=== PATIENT | male | born 1995 | race Caucasian/White ===

== ENCOUNTER 2019-02-23 18:18 | Emergency (ER) | payer MEDICAID ==
[~2019-02-23] VITALS: Ht 175.3 cm; Wt 111.1 kg
[~2019-02-23 18:18] MED LIST: ATIVAN0.5 MG; CYMBALTA60 MG; DOXYCYCLINE; NAPROSYN500 MG PO; RISPERDAL4 M1
[2019-02-23] MEDS ORDERED: SEROQUEL 50 MG50 MG PO (18:21)
[2019-02-23] MEDS ORDERED: ATIVAN1 MG PO (18:21)
[2019-02-23] MEDS ORDERED: BUSPIRONE HCL10 MG PO (18:21)
[2019-02-23] MEDS ORDERED: EFFEXOR 5050 MG/1 T1 PO (18:22)
[2019-02-23] MEDS ORDERED: SEROQUEL XR 30300 M1 PO (18:22)
[2019-02-23] MEDS ORDERED: VISTARIL 25 MG25 M1 PO (18:23)
[2019-02-23 18:54] LABS: ABSOLUTE LYMPHOCYTES 1.3 thou/uL (0.8-5.3); ABSOLUTE MONOCYTES 0.4 thou/uL (0.0-1.2); ABSOLUTE NEUTROPHILS 2.6 thou/uL (1.6-8.1); BASOPHILS 0.8 %; EOSINOPHILS 0.2 %; HEMATOCRIT 44.1 % (42.0-52.0); HEMOGLOBIN 15.4 gm/dL (14.0-18.0); LYMPHOCYTES 30.3 %; MCHC 34.8 g/dL (28.0-37.0); MCV 86.2 fL (80.0-100.0); MONOCYTES 9.1 %; MPV 8.8 fl. (7.2-11.1); NUCLEATED RBCS 0 /100WBC; PLATELET COUNT* 188 thou/uL (150-400); POLYS 59.6 %; RBC 5.11 mil/uL (4.50-6.00); RDW-CV 13.2 % (10.5-14.5); WBC 4.3 thou/uL (4.0-11.0)
[2019-02-23 19:07] LABS: ALBUMIN 4.3 g/dL (3.4-5.0); CALCIUM 8.6 mg/dL (8.5-10.1); CREATININE 1.4 mg/dL (0.6-1.3); MAGNESIUM 1.9 mg/dL (1.8-2.4); POTASSIUM 3.4 mmol/L (3.5-5.1); TOTAL BILIRUBIN 0.4 mg/dL (<0.1-1.0); TOTAL PROTEIN 8.1 g/dL (6.4-8.2)
[2019-02-23 19:10] LABS: APTT 24.5 Seconds (25.0-31.3); PROTIME 10.1 Seconds (9.20-11.50)
[2019-02-23 19:18] LABS: SALICYLATE < 2.8 mg/dL (2.8-20.0)
[2019-02-23 19:19] LABS: ACETAMINOPHEN < 2 ug/mL (10-30); ALCOHOL < 10 mg/dL (<10)
[2019-02-23 21:03] LABS: URINE BILIRUBIN NEGATIVE (Negative); URINE BLOOD NEGATIVE (Negative); URINE CLARITY CLEAR; URINE COLOR YELLOW; URINE GLUCOSE-RANDOM NEGATIVE (Negative); URINE KETONES TRACE (Negative); URINE LEUKOCYTES-REFLEX NEGATIVE (Negative); URINE NITRITE-REFLEX NEGATIVE (Negative); URINE PROTEIN TRACE (Negative); URINE SPECIFIC GRAVITY >= 1.030 (1.005-1.030); URINE UROBILINOGEN 0.2 E.U./dl (0.2-1.0)
[2019-02-23 21:12] LABS: AMP/METHAMP Negative (Negative); BARBITURATES Negative (Negative); BENZODIAZEPINES Negative (Negative); COCAINE Negative (Negative); METHADONE Negative (Negative); OPIATES Negative (Negative); PCP Negative (Negative); THC Negative (Negative)
[2019-02-23 22:00] VITALS: BP 129/79
--- NOTE | 2019-02-24 09:57 | EKG ---
[place] [address] ELECTROCARDIOGRAM REPORT Name: [id number] Admission: 02/23/19 Attend Phys: Discharge: 02/23/19 Date of : [birth year] Report #: [id number] THIS REPORT FOR: //name// [facility] ED Test Date: 2019-02-23 Test Time: 18:57:15 Pat Name: ELENI OSBORNE Department: Room: Gender: Upper Cutter: Lona LORENZ : 1995 Requested By: Pavel Gonsalez Order Number: [id number] MD: Dennis Rossi Measurements Intervals [place] Rate: 112 P: 41 PA: 152 QRS: 37 QRSD: 89 T: 25 QT: 328 QTc: 448 Interpretive Statements Sinus tachycardia No previous ECG available for comparison Electronically Signed On 02-24-2019 9:56:48 CDT by Dennis Rossi [email or web address] <ELECTRONICALLY SIGNED> By: Dennis Rossi MD, [facility] 02/24/19 0956 [id number] 1857 Dennis Rossi MD, FACC /EPI
== END 2019-02-23 22:00 | disposition short-term general hospital (02) ==
LOC: M.ERS 18:18
PROVIDERS: Family Medicine; Physician Assistant
DX: S00.83XA Contusion of other part of head, initial encounter (principal); R56.9 Unspecified convulsions; F31.9 Bipolar disorder, unspecified; F41.9 Anxiety disorder, unspecified; F25.9 Schizoaffective disorder, unspecified; Z88.1 Allergy status to other antibiotic agents; Z88.2 Allergy status to sulfonamides; W18.39XA Other fall on same level, initial encounter; Y93.89 Activity, other specified; Y92.89 Other specified places as the place of occurrence of the external cause; Y99.8 Other external cause status

== ENCOUNTER 2019-02-28 00:44 | Inpatient (IN) | payer MEDICAID ==
[~2019-02-28] VITALS: Ht 177.8 cm; Wt 108.0 kg
--- NOTE | ~2019-02-28 | CON ---
[address] [address] CONSULTATION Name: ELENI OSBORNE Room: [address] IN .R.#: [id number] Admission: 02/28/19 Attend Phys: Hayden Majano MD Discharge: Date of : [birth year] Report #: [id number] THIS REPORT FOR: //name// CC: [facility] physician/PCP Hayden Majano DATE OF SERVICE: 02/28/2019 HISTORY OF PRESENT ILLNESS: This is a 24-year-old male patient who was evaluated by me for altered mental status. I talked to Dr. Rodgers, the admitting physician and I talked to the nurses. ER physician had called me last night about this patient that this patient had a seizure about 2 weeks ago. They were trying to taper off his lorazepam and instead of tapering it off he just stopped it. Few days after that he had a seizure. He had a brain contusion and he was transferred to [facility]. Apparently, he was transferred to [facility] because there was no bed in [facility]. Since his dismissal, the patient has not returned back to his baseline. I am not certain he has become any worse, but he just has not come back to his baseline. I had discussed with Emergency Room physician that neurologically, I do not think we need to do much on him, but he mainly needs a psychiatric consult and followup to adjust his medications and may even need an inpatient psychiatric evaluation and management. I reviewed those records and it looks like the patient was subsequently admitted here. The patient's mother is here and I discussed the same thing with her. The patient is in restraints, but he is not belligerent or markedly agitated. REVIEW OF SYSTEMS: Positive for bipolar disorder as well as schizoaffective disorder. He has been on multiple medications and they are pretty high strong psychiatric medications. It was the impression of this neurologist at [facility] that he had benzo withdrawal seizure. A 14-point review of system was carried out the best we could carry out and was as summarized above. PAST MEDICAL HISTORY: Positive for multiple psychiatric problems. FAMILY HISTORY: Unremarkable. SOCIAL HISTORY: The patient's mother was here and she provided most of the history. PHYSICAL EXAMINATION: Indicates he is alert. He is responsive. He can follow some commands. His speech does look altered to some extent, but I do not know what his baseline is. His cranial nerve examination as well as neuromuscular examinations appear unremarkable. He could not cooperate with the rest of the neurological examination. Cardiac and respiratory examinations appear unremarkable. This patient's white count is normal. His potassium is trace low and CPK is high. His AST and ALT is also high. [place] [address] CONSULTATION Name: ELENI OSBORNE Lona Room: [address] IN [facility]#: [id number] Admission: 02/28/19 Attend Phys: Hayden Majano MD Discharge: Date of : [birth year] Report #: [id number] unremarkable. He had an MRI done in [facility]. IMPRESSION AND PLAN: This patient's symptoms are most likely related to the patient's psychiatric problem, psychiatric medications and recent readjustment of his medication. Symptoms probably got aggravated by brain contusion and possible concussion at that time. I do not believe much can be done about that. I had talked to the Emergency Room physician last night that his management is going to be mainly psychiatric. I talked the same thing to the patient's mother. I did discuss with her the limitation of our psychiatric services, that we use tele psychiatric and her options in that regard. She understands that. The patient was discussed with Dr. Rodgers and he is going to arrange a psychiatric consult here and I will look at the patient's EEG and sometime along the line we may repeat the MRI to make sure there is no delayed contusion, which is unlikely with a normal CT now. The patient needs to be more cooperative before he does that. I talked to the mother in detail her options in that regard and our limitation and her options in that regard and she understood that very well. I will look at the patient's EEG and follow up with you. Total time spent 50 minutes, majority of time was counseling and coordinating the patient's care. By: [id number] Woodward MD /khadijah
--- NOTE | ~2019-02-28 | EEG ---
[address] [address] EEG STUDY REPORT Name: ELENI OSBORNE Lona Room: [address] IN .R.#: [id number] Admission: 02/28/19 Attend Phys: Hayden Majano MD Discharge: Date of : [birth year] Report #: [id number] THIS REPORT FOR: //name// CC: FAM physician/PCP Hayden Majano DATE OF SERVICE: 02/28/2019 This patient is being evaluated for altered mental status. EEG was done by placing the electrodes by standard 10-20 system of electrode placement. Both referential and sequential montages were used for recording. Background activity in this patient's EEG is about 8 Hz and 30 microvolts. A lot of artifact is present because the patient did not cooperate. The patient did become drowsy and that was associated with bilateral slowing. Throughout the record, no active epileptiform activity was noticed. IMPRESSION: This patient's EEG is intermixed with theta range slowing on both sides. That is a nonspecific abnormality, which can occur with drowsiness, effect of psychotropic medication, dementia, etc. No active epileptiform activity was noticed during this record. By: 1154 [id number] Woodward MD /nt
[~2019-02-28 00:44] MED LIST changes: +ATIVAN1 MG PO; +BUSPIRONE HCL10 MG PO; +EFFEXOR 5050 MG/1 T1 PO; +SEROQUEL 50 MG50 MG PO; +SEROQUEL XR 30300 M1 PO; +VISTARIL 25 MG25 M1 PO
[2019-02-28 00:50] VITALS: BP 126/72
[2019-02-28] MEDS ORDERED: MEDROLDOSEPACK PO (01:05)
[2019-02-28 01:23] LABS: ABSOLUTE LYMPHOCYTES 1.7 thou/uL (0.8-5.3); ABSOLUTE MONOCYTES 0.6 thou/uL (0.0-1.2); BASOPHILS 0.7 %; EOSINOPHILS 0.4 %; HEMATOCRIT 46.1 % (42.0-52.0); HEMOGLOBIN 16.2 gm/dL (14.0-18.0); LYMPHOCYTES 30.9 %; MCH 30.2 pg (26.0-34.0); MCHC 35.1 g/dL (28.0-37.0); MONOCYTES 11.6 %; MPV 8.6 fl. (7.2-11.1); NUCLEATED RBCS 0 /100WBC; PLATELET COUNT* 194 thou/uL (150-400); POLYS 56.4 %; RBC 5.36 mil/uL (4.50-6.00); RDW-CV 13.3 % (10.5-14.5); WBC 5.4 thou/uL (4.0-11.0)
[2019-02-28 01:33] LABS: ANION GAP 13 mmol/L (7-16); BUN 10 mg/dL (7-18); CALCIUM 9.1 mg/dL (8.5-10.1); CHLORIDE 105 mmol/L (98-107); CO2 25 mmol/L (21-32); CREATININE 1.3 mg/dL (0.6-1.3); GLUCOSE 150 mg/dL (70-99); POTASSIUM 3.4 mmol/L (3.5-5.1); SODIUM 143 mmol/L (136-145)
[2019-02-28 01:34] LABS: PROTIME 10.2 Seconds (9.20-11.50)
[2019-02-28 01:47] LABS: ALBUMIN 4.4 g/dL (3.4-5.0); ALKALINE PHOSPHATASE 84 U/L (46-116); SGOT 42 U/L (15-37); SGPT 77 U/L (30-65); TOTAL BILIRUBIN 0.4 mg/dL (<0.1-1.0); TOTAL PROTEIN 8.4 g/dL (6.4-8.2); TROPONIN-I LEVEL <0.06 ng/mL (<0.06)
[2019-02-28 03:18] LABS: URINE BILIRUBIN NEGATIVE (Negative); URINE BLOOD NEGATIVE (Negative); URINE CLARITY CLEAR; URINE COLOR YELLOW; URINE GLUCOSE-RANDOM NEGATIVE (Negative); URINE KETONES TRACE (Negative); URINE LEUKOCYTES-REFLEX NEGATIVE (Negative); URINE NITRITE-REFLEX NEGATIVE (Negative); URINE PROTEIN TRACE (Negative); URINE SPECIFIC GRAVITY >= 1.030 (1.005-1.030); URINE UROBILINOGEN 0.2 E.U./dl (0.2-1.0)
[2019-02-28 03:24] LABS: AMP/METHAMP Negative (Negative); BARBITURATES Negative (Negative); BENZODIAZEPINES POSITIVE (Negative); COCAINE Negative (Negative); METHADONE Negative (Negative); OPIATES Negative (Negative); PCP Negative (Negative); THC Negative (Negative)
--- NOTE | 2019-02-28 07:03 | NUR ---
THIS NURSE RECEIVED REPORT FROM ANI ALLEN. THIS NURSE TO ASSUME PT CARE AT THIS TIME.
[2019-02-28 07:06] VITALS: BP 120/81
--- NOTE | 2019-02-28 10:39 | NUR ---
PT IN BED, ATTEMPTING TO PULL OFF TELEMETRY LEADS AND IV. NURSE IN ROOM INSTRUCTING PT TO KEEP TELEMETRY ON TO MONITOR HEART AND IV TO KEEP IV FLUIDS INFUSING. PT STATED UNDERSTANDING, BUT TOOK OFF BP CUFF AND STARTED TAKING OFF EKG STICKERS. NURSE REAPPLIED BP CUFF. NURSE OFFERED WATER/FOOD. PT DECLINED. PARENTS AT BEDSIDE. SECURITY AT BEDSIDE.
--- NOTE | 2019-02-28 11:04 | NUR ---
UNIX ADMINISTRATOR AT BEDSIDE PERFORMING EEG PROCEDURE. PT LAYING IN BED, CALM, SOFT RESTRAINTS IN PLACE SO PT WOULD NOT PULL AT IV, TELEMETRY LEADS, OR EEG LEADS. PT COOPERATIVE.
--- NOTE | 2019-02-28 12:24 | NUR ---
POWER DISTRIBUTION ENGINEER COMPLETE WITH STUDY. SITTER NOW AT BEDSIDE. PT STILL PULLING AT BED LINENS AND REACHING FOR RESTRAINT STRINGS. NURSE IN ROOM TALKING TO PT ABOUT ONCE HE IS LESS RESTLESS, RESTRAINTS WOULD BE ABLE TO COME OFF. PARENTS AT BEDSIDE.
--- NOTE | 2019-02-28 13:06 | NUR ---
REPORT GIVEN TO ANI MURO WHO IS TO ASSUME PT CARE INPATIENT NURSE.
[2019-02-28 13:07] VITALS: BP 144/106
[2019-02-28 13:25] VITALS: BP 144/96
--- NOTE | 2019-02-28 13:25 | NUR ---
ADMIT TO RM 201 VIA CART TELEPHONE REPORT GIVEN PATIENT WITH SITTER AND ORDERS FOR RESTRAINTS A AND O X 2, PERSON and PLACE ONLY AND IMPULSIVE PARENTS AT BEDSIDE
--- NOTE | 2019-02-28 17:01 | EKG ---
[place] [address] ELECTROCARDIOGRAM REPORT Name: ELENI OSBORNE Room: [address] ADM IN .R.#: [id number] Admission: 02/28/19 Attend Phys: Hayden Majano MD Discharge: Date of : [birth year] Report #: [id number] THIS REPORT FOR: //name// [facility] ED Test Date: 2019-02-28 Test Time: 01:01:35 Pat Name: ELENI DYLON Department: Room: [facility] Gender: M Skiff Operator: Lona LORENZ : 1995 Requested By: Yazmin Jamil Order Number: [id number] MD: Fuentes Valdivia Measurements Intervals [place] Rate: 170 P: [place]: QRS: 66 QRSD: 95 T: 38 QT: 310 QTc: 522 Interpretive Statements Sinus tachycardia Prolonged QT interval Artifact in lead(s) I,II,aVR,aVL,V1,V3,V4,V5,V6 Compared to ECG 02/23/2019 18:57:15 Prolonged QT interval now present Electronically Signed On 02-28-2019 17:01:35 CDT by Fuentes Valdivia [email or web address] <ELECTRONICALLY SIGNED> By: Fuentes Valdivia MD, FAC 02/28/19 1701 0 0 Fuentes Valdivia MD, FAC /EPI
[2019-02-28 20:00] VITALS: BP 154/90
[2019-03-01] VITALS: BP 145/80
[2019-03-01 04:00] VITALS: BP 140/80
--- NOTE | 2019-03-01 05:11 | NUR ---
patient progressing towards goals. pt had hard time falling asleep last night. at beginning of shift pt seemed to be experiencing manic episode he was seeing things that were not there had disorganized thoughts, unable to formulate full sentence. pt dad gave him his cell phone to watch [employer] videos and that seemed to calm pt down. his mom and dad stayed in the room with pt. pt fell asleep around 0200. he got up with assist to the restroom several times. pt has had several BM able to walk to bathroom with assist. currently pt sleeping was taken off restraints since 2200 last night. bed to lowest position. one on one observation.
[2019-03-01 05:52] LABS: HEMOGLOBIN 14.8 gm/dL (14.0-18.0); MCH 30.1 pg (26.0-34.0); MCHC 35.1 g/dL (28.0-37.0); MCV 85.8 fL (80.0-100.0); MPV 8.5 fl. (7.2-11.1); RBC 4.9 mil/uL (4.50-6.00); RDW-CV 13.2 % (10.5-14.5); WBC 5.2 thou/uL (4.0-11.0)
[2019-03-01 06:19] LABS: CALCIUM 8.1 mg/dL (8.5-10.1); CREATININE 1.1 mg/dL (0.6-1.3); POTASSIUM 3.6 mmol/L (3.5-5.1)
[2019-03-01 08:00] VITALS: BP 125/85
--- NOTE | 2019-03-01 11:06 | NUR ---
RECEIVED REPORT AND ASSUMED CARE OF PT AT 0735.WHEN I WENT IN HIS ROOM PT WAS SLEEPING AND NOT FOLLOWING ANY COMMANDS.TRACING ST-SR ON THE MONITOR.IV PATENT WITH FUIDS INFUSING.CURRENTLY NOT ON RESTRAIN.UP WITH ASSIST.SITTER ON ROOM.NO COMPLAINTS OF PAIN .CLEAR LUNGS SOUNDS.NO SKIN ISSUES.CALL LIGHT AND FALL PRECAUTIONS IN PLACE.WILL CONTINUE TO MONITOR.
[2019-03-01 12:04] VITALS: BP 147/103
--- NOTE | 2019-03-01 15:15 | NUR ---
Pt is A&O. Resides at home with his parents, dad in room at bedside. Dad provided most of hx. Pt is independent, parents work during the day and Pt is able to stay home alone. Dad did report that he thinks that Pt sometimes misses/doesn't take some of his meds. Pt is current at [facility]. No DME. No hx of HH or SNF. Goal is home at [place]. Following
[2019-03-01 16:20] VITALS: BP 170/98
--- NOTE | 2019-03-01 17:20 | NUR ---
VSS.TRACING SR ON THE MONITOR.ON RA.ALERT AND VERY CALM.IV PATENT WITH FLUINDS INFUSING.UP WITH ASSIST.PT FAMILY ON THE ROOM FOR WHOLE DAY ALONG WITH THE SITTER.EEG COMPLETED TODAY.PT WAS NOT RESTRAINED FOR WHOLE DAY. CALL LIGHT AND FALL PRECAUTIONS IN PLACE.HRLY ROUNDING COMPLETED FOR SAFETY. WILL CONTINUE TO MONITOR.
--- NOTE | 2019-03-01 17:37 | NUR ---
I have reviewed the documentation by ANI DELUCA from 729 to 1737 and I concur with it.
[2019-03-01 20:00] VITALS: BP 139/94
[2019-03-02] VITALS: BP 143/99
[2019-03-02 04:00] VITALS: BP 128/85
--- NOTE | 2019-03-02 04:21 | NUR ---
ASSUMED PT CARE AT APPROX 1930. PT IS AWAKE ABLE TO ANSWER SOME SIMPLE QUESTIONS, MAKES SOME NONSENSICAL ANSWERS AT TIMES. VSS ON ROOM AIR. STOCK MIXER IN PLACE TRACING ST/SR. MOM REMAINED AT BEDSIDE. PT SEEMS TO BE CALMER AND MORE COOPERATIVE. PT WAS ABLE TO SLEEP MOST OF THE NIGHT. CLOSELY MONITORED. CALL LIGHT WITHIN REACH. HOURLY ROUNDING DONE FOR PT SAFETY.
[2019-03-02 08:11] VITALS: BP 130/92
--- NOTE | 2019-03-02 11:24 | NUR ---
RECEIVED REPORT AND ASSUMED CARE OF PT AT 0730.PT IS A/OX SELF.CONFUSED NAD HALLUCINATING.TRACING ST-SR ON THE MONITOR.ON RA.IV PATENT WITH IV FLUIDS INFUSING.UP SATND BY.NO SKIN ISSUES.VSS.CALL LIGHT AD FALL PRECAUTIONS IN PLACE.BM THIS MORNING.NO RESTRAIN.NO SITTER ON ROOM.PT FAMILY PRESENT ON ROOM EVERY TIME.HRLY ROUNDING COMPLETED.WILL CONTINUE TO MONITOR.
[2019-03-02 11:40] VITALS: BP 128/88
[2019-03-02] MEDS ORDERED: ZIPRASIDONE HCL20 M1 PO (12:17)
[2019-03-02 12:24] VITALS: BP 128/88
--- NOTE | 2019-03-02 14:01 | NUR ---
PT OK TO DISCHARGE.MRI COMPLETED AND REPORT CALLED OUT TO DR GARDNER.DISCHARGE PAPER WORK COMPLETED AND EXPLAINED TO PT AND HIS DAD.NEW SCRIPT PROVIDED.ALL PERSONAL BELONGINGS HANDED OVER TO PT FATHER.IV AND HEART MONITOR TAKEN OUT AND RETURNED TO NURSING STATION.PT IS GETTING DRESSED TO GO HOME WITH HIS DAD.
== END 2019-03-02 14:35 | disposition home or self-care (01) | DRG 71 ==
LOC: M.ERS 00:44 → M.TBA-ER 03:15 → M.2W 03:15
PROVIDERS: Emergency Medicine; Internal Medicine; ADMIT Internal Medicine
DX: G93.41 Metabolic encephalopathy (principal); F13.230 Sedative, hypnotic or anxiolytic dependence with withdrawal, uncomplicated; M62.82 Rhabdomyolysis; F31.10 Bipolar disorder, current episode manic without psychotic features, unspecified; I10 Essential (primary) hypertension; F07.81 Postconcussional syndrome; F41.9 Anxiety disorder, unspecified; Z79.899 Other long term (current) drug therapy; Z88.1 Allergy status to other antibiotic agents; Z88.2 Allergy status to sulfonamides